=== PATIENT | female | born 1995 | race Caucasian/White ===

== ENCOUNTER 2017-10-30 22:35 | Emergency (ER) | payer MEDICAID ==
[~2017-10-30] VITALS: Ht 175.3 cm; Wt 99.3 kg
[2017-10-30 23:07] VITALS: BP 137/87
[2017-10-31] MEDS ORDERED: DEXAMETHASONE SOD PHOS 10MG/1ML VIAL INJ IM ONE (01:30)
[2017-10-31] MEDS ORDERED: ACETAMINOPHEN/CODEINE#3 (300/30mg) TAB PO ONE (01:30)
== END 2017-10-31 02:01 | disposition home or self-care (01) ==
LOC: ER 22:39
DX: L53.8 Other specified erythematous conditions (principal); T63.2X1A Toxic effect of venom of scorpion, accidental (unintentional), initial encounter; Y92.89 Other specified places as the place of occurrence of the external cause
CPT/HCPCS: 96372; 99283; J1100